=== PATIENT | female | born 1985 | race Caucasian/White ===

== ENCOUNTER 2016-04-06 17:51 | Emergency (ER) | payer MEDICAID ==
[2016-04-06 18:31] LABS: Hematocrit 37.8 % (37.0-47.0); Hemoglobin 13.1 gm/dL (12.5-16.0); Mean Cell Volume 78.3 fl (78-100); Mean Corpuscular Hemoglobin 27.1 pg (27-31); Mean Corpuscular Hgb Conc 34.7 g/dl (32-36); Mean Platelet Volume 9.4 fl (6.0-9.5); Neutrophil # 7.4 K/mm3 (1.3-6.0); Neutrophil % 71.3 % (42-75.0); Platelet Count 236 K/mm3 (150-450); Red Blood Count 4.83 M/mm3 (4.2-5.4); Red Cell Distribution Width 13.1 % (11.5-14.0); White Blood Count 10.3 K/mm3 (4.0-10.5)
[2016-04-06 18:43] LABS: Albumin * 3.2 gm/dl (3.4-5.0); Anion Gap 14.6 mmol/L (6.8-13.8); BUN/Creatinine Ratio 11.9 (9.0-21.6); Bilirubin, Total 0.3 mg/dL (0.0-1.1); Ca. Corrected For Albumin 9.5 mg/dL (8.4-10.2); Calcium * 9.2 mg/dL (7.9-10.9); Carbon Dioxide 23.9 mmol/L (24-32.6); Potassium 3.5 mmol/L (3.4-4.6); Total Protein 7.5 gm/dL (6.2-8.2)
[2016-04-06 21:38] LABS: Urine Bilirubin Negative (NEGATIVE); Urine Blood Negative /ul (NEGATIVE); Urine Ketone Negative (NEGATIVE); Urine Protein Negative (NEGATIVE); Urine Specific Gravity >=1.030 SP.GR. (1.005-1.010); Urine Urobilinogen Normal (NORMAL)
[2016-04-06 21:40] LABS: Urine Amorphous Sediment Few - 1+ (NONE-FEW); Urine Appearance Slightly Cloudy; Urine Bacteria 2+; Urine Color Yellow; Urine Mucus TRACE; Urine Nitrite Positive (NEGATIVE); Urine RBC None Seen /hpf (0-5); Urine WBC 0-5 /hpf (0-5)
--- NOTE | 2016-04-06 21:57 | ERNOTE ---
ER Female HPI Date of Service: 04/06/16 Stated Complaint: 13WEEKS PREG BLEEDING Presenting Symptoms: vaginal bleeding Time Seen by Provider: 04/06/16 21:19 Source: patient Exam Limitations: no limitations Immunizations: IMMUNIZATION HX Immunizations Up to Date Yes History of Influenza Vaccine No Hx Pneumococcal Vaccination No Allergies/Adverse Reactions: Allergies No Known Allergies Allergy (Verified 04/06/16 18:02) Home Medications: HOME MEDICATIONS Vit No.78/Iron/FA [Prenatabs FA Tablet] 1 each PO DAILY 02/26/16 [Last Taken Unknown] Cephalexin [Keflex] 500 mg PO QID #28 capsule 04/06/16 [Last Taken Unknown] - History of Present Illness Narrative: Has been spotting since last evening. No rapid bleeding, just some blood when wipes. No injury, no fever or chills. Had some bleeding at 6 weeks that stopped after a week. She believes her blood type is ? positive. No dysuria. 4th . Date (Duration): 04/05/16 Timing: Present: intermittent Quality: Present: mild Onset Location: Present: vaginal Radiation: Present: none Prior Abdominal Problems: Present: similar symptoms Associated Symptoms: Present: other - some cramping intermittently Review of Systems - Review of Systems Constitutional: Present: no symptoms reported Respiratory: Present: no symptoms reported Cardiology: Present: no symptoms reported Gastrointestinal/Abdominal: Present: no symptoms reported Genitourinary: Absent: pain, dysuria, hematuria, discharge Musculoskeletal: Present: no symptoms reported - Patient's Past Medical History Patient History - Medical: No pertinent hx Patient History - Cancer: No Hx of Cancer Patient History - Surgical Procedures: Cholecystectomy, - Social History Living Situations: home Smoking Status: Never smoker Have you smoked in the past 12 months: No Do you dip or chew tobacco: No Alcohol Use: none Drug Use: none Physical Exam - Physical Exam General Appearance: Present: wd/wn, alert, no apparent distress Eye Exam: Normal inspection: bilateral Neck: Present: normal inspection, nontender, supple Respiratory: Present: no respiratory distress, normal breath sounds Cardiovascular/Chest: Present: regular rate, rhythm, no murmur Gastrointestinal/Abdominal: Present: nontender, nondistended, soft, other - obese ++ Back Exam: Present: normal inspection Neurological Exam: Present: alert, oriented Skin Exam: Present: normal color, warm/dry Pelvic Exam: Absent: active bleeding, discharge, lesions, cervical motion tendernes, tender uterus ED Progress - Results and Orders Patient's Lab Results:: I have reviewed the patient's lab results. - Vital Signs Patient's Vital Signs:: I have reviewed the patient's vital signs. Vital Signs: Vital Signs 04/06/16 17:59 Temperature 36.1 C L Pulse Rate 89 Respiratory 14 Rate Blood Pressure 123/81 O2 Sat by Pulse 98 Oximetry - CT/Ultrasound CT/Ultrasound Narrative: OB US. 13 wks 1d. Normal IUP. - Progress/Reassessment Chief Complaint: OB Screening Plan - Plan Plan: Rx Cephalexin for UTI. FU OB. Rest. Departure Clinical Impression: Vaginal bleeding before 22 weeks gestation, Cystitis during in first trimester, antepartum - Departure Disposition: Home self-care Condition: Good Instructions: and Urinary Tract Infection Referrals: Merle Spain DO [Primary Care Provider] - Prescriptions: Cephalexin [Keflex] 500 mg PO QID #28 capsule
[2016-04-06] MEDS ORDERED: CEPHALEXIN MONOHYDRATE 250 MG CAPSULE ONE (22:22)
[2016-04-06] MEDS ORDERED: CEPHALEXIN MONOHYDRATE 250 MG CAPSULE PO ONE (22:22)
[2016-04-06 22:28] VITALS: BP 127/85
== END 2016-04-06 22:40 | disposition home or self-care (01) ==
LOC: ER 17:51
DX: O20.9 Hemorrhage in early pregnancy, unspecified (principal); O23.11 Infections of bladder in pregnancy, first trimester; Z3A.13 13 weeks gestation of pregnancy; Z90.49 Acquired absence of other specified parts of digestive tract

== ENCOUNTER 2016-04-28 11:14 | Emergency (ER) | payer MEDICAID, OTHER ==
[2016-04-28 11:23] VITALS: BP 143/75
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
[2016-04-28 11:53] LABS: Hematocrit 35.9 % (37.0-47.0); Hemoglobin 12.6 gm/dL (12.5-16.0); Mean Cell Volume 78.6 fl (78-100); Mean Corpuscular Hemoglobin 27.6 pg (27-31); Mean Corpuscular Hgb Conc 35.1 g/dl (32-36); Neutrophil % 70.3 % (42-75.0); Platelet Count 217 K/mm3 (150-450); Red Blood Count 4.57 M/mm3 (4.2-5.4); Red Cell Distribution Width 13.4 % (11.5-14.0); White Blood Count 8.5 K/mm3 (4.0-10.5)
[2016-04-28 12:16] LABS: Anion Gap 12.3 mmol/L (6.8-13.8); BUN/Creatinine Ratio 18.9 (9.0-21.6); Bilirubin, Total 0.3 mg/dL (0.0-1.1); Ca. Corrected For Albumin 9.2 mg/dL (8.4-10.2); Calcium * 8.7 mg/dL (7.9-10.9); Carbon Dioxide 25.2 mmol/L (24-32.6); Potassium 3.5 mmol/L (3.4-4.6); Total Protein 7.1 gm/dL (6.2-8.2)
== END 2016-04-28 14:55 | disposition home or self-care (01) ==
LOC: ER 11:14
DX: O9A.212 Injury, poisoning and certain other consequences of external causes complicating pregnancy, second trimester (principal); R10.9 Unspecified abdominal pain; Z3A.16 16 weeks gestation of pregnancy

== ENCOUNTER 2016-05-09 12:34 | Emergency (ER) | payer MEDICAID ==
[2016-05-09 12:53] VITALS: BP 125/73
[2016-05-09] MEDS ORDERED: ACETAMINOPHEN 325 MG TABLET PO ONE (14:22)
[2016-05-09] MEDS ORDERED: ACETAMINOPHEN 325 MG TABLET ONE (14:32)
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
== END 2016-05-09 15:04 | disposition home or self-care (01) ==
LOC: ER 12:34
DX: S39.81XA Other specified injuries of abdomen, initial encounter (principal); X58.XXXA Exposure to other specified factors, initial encounter; Y93.F9 Activity, other caregiving; Y92.129 Unspecified place in nursing home as the place of occurrence of the external cause; Y99.0 Civilian activity done for income or pay; Z33.1 Pregnant state, incidental; Z3A.18 18 weeks gestation of pregnancy